=== PATIENT | female | born 1970 | race Two or more races ===

== ENCOUNTER 2020-06-18 15:03 | Emergency (ER) | payer MEDICAID ==
[~2020-06-18] VITALS: Ht 162.6 cm; Wt 72.6 kg
--- NOTE | 2020-06-18 15:22 | NUR ---
TO ER BED 4 AWAITING MD EDGAR,MONITORED,UNABLE TO GIVE URINE SPECIMEN AT THIS TIME,NAD
--- NOTE | 2020-06-18 15:23 | NUR ---
THE PATIENT BIBS FOR C/O ABDOMINAL PAIN AND BACK PAIN X 2 MONTHS. THE PATIENT RATES PAIN 10/10 AT THIS TIME. DENIES NAUSEA/VOMITING OR DIARRHEA. THE PATIENT IS IN ROOM AIR AND DENIES SOB. RESPIRATION REGULAR AND UNLABORED. THE PATIENT IS PROVIDED WITH A WARM BLANKET FOR COMFORT. WILL CONTINUE TO MONITOR.
[2020-06-18] MEDS ORDERED: IV NS 0.9% 1,000 ML BAG IV ONE (16:00)
[2020-06-18] MEDS ORDERED: ONDANSETRON HCL/PF 4 MG/2 ML VIAL IVP ONE (16:00)
[2020-06-18] MEDS ORDERED: MORPHINE SULFATE INJ 2 MG/ML DISP.SYRIN IV ONE (16:00)
[2020-06-18] MEDS ORDERED: ONDANSETRON HCL/PF 4 MG/2 ML VIAL ONE (16:18)
[2020-06-18] MEDS ORDERED: MORPHINE SULFATE INJ 4 MG/ML DISP.SYRIN ONE (16:18)
[2020-06-18 16:26] LABS: BASOPHILS # (AUTO) 0.1 /CMM (0.0-0.2); BASOPHILS % (AUTO) 1.6 % (0.0-2.0); EOSINOPHILS % (AUTO) 4.5 % (0.0-6.0); HEMATOCRIT 39 % (33-45); HEMOGLOBIN 12.8 g/dL (11.5-14.8); LYMPHOCYTES # (AUTO) 3.1 /CMM (0.8-4.8); LYMPHOCYTES % (AUTO) 39.8 % (20.0-44.0); MEAN CORPUSCULAR HGB CONC 33 g/dl (31.0-36.0); MEAN CORPUSCULAR VOLUME 87 fL (82-100); MONOCYTES # (AUTO) 0.3 /CMM (0.1-1.30); MONOCYTES % (AUTO) 4.4 % (2.0-12.0); NEUTROPHILS # (AUTO) 3.8 /CMM (1.8-8.9); NEUTROPHILS % (AUTO) 49.7 % (43.0-81.0); PLATELET COUNT (AUTO) 257 /CMM (150-450); RED BLOOD CELL COUNT(AUTO) 4.43 MIL/uL (4.0-5.2); WHITE BLOOD COUNT (AUTO) 7.7 K/uL (4.3-11.0)
[2020-06-18 16:33] LABS: ALBUMIN 3.5 g/dL (3.4-5.0); BILIRUBIN,DIRECT 0.1 mg/dL (0.0-0.2); BILIRUBIN,TOTAL 0.3 mg/dL (0.2-1.0); CALCIUM, SERUM 8.6 mg/dL (8.5-10.1); CREATININE 0.8 mg/dL (0.6-1.3); POTASSIUM 3.8 mmol/L (3.5-5.1); TOTAL PROTEIN, SERUM 7.1 g/dL (6.4-8.2)
[2020-06-18] MEDS ORDERED: INSULIN REGULAR, HUMAN 100 UNIT/ML 10 ML VIAL SQ ONE (17:00)
--- NOTE | 2020-06-18 17:06 | NUR ---
The patient alert and oriented x4. Denies pain at this time. The patient is in no apparent distress. Will continue to monitor.
[2020-06-18] MEDS ORDERED: OMEP40CA13 PO (17:13)
--- NOTE | 2020-06-18 17:22 | NUR ---
The patient has refused to given urine despite explaining risks and benefits. Dr. Davis is made aware.
--- NOTE | 2020-06-18 17:33 | NUR ---
Patient discharged to home in stable condition. Written and verbal after care instructions given. Patient verbalizes understanding of instruction. The patient left ER in stable condition.
[2020-06-18 17:35] VITALS: BP 131/72
== END 2020-06-18 17:34 | disposition home or self-care (01) ==
LOC: ER 15:07
DX: R10.13 Epigastric pain (principal); R11.0 Nausea; R19.7 Diarrhea, unspecified; E11.9 Type 2 diabetes mellitus without complications; Z79.899 Other long term (current) drug therapy
CPT/HCPCS: 36415; 74176; 80048; 80076; 82962; 83690; 85025; 96361; 96372; 96374; 96375; 99284; J1815; J2270; J2405; J7030 ×2

== ENCOUNTER 2022-06-30 21:25 | Emergency (ER) | payer MEDICAID, OTHER ==
[~2022-06-30] VITALS: Ht 157.5 cm; Wt 73.0 kg
[~2022-06-30 21:25] MED LIST: OMEP40CA21 PO
--- NOTE | 2022-06-30 21:55 | NUR ---
BIBSELF FROM HOME C/O L SIDED CP X3 DAYS. -N/V, CP IS 9/10. DESCRIBED PRESSURED. PATIENT IS AAOX4, ABLE TO MAKE NEEDS KNOWN. ROMANSH SPEAKING. PLACED COMFORTABLY IN BED. ATTACHED TO MONITOR. VITALS CHECKED.
--- NOTE | 2022-06-30 22:18 | NUR ---
EKG DONE AT BEDSIDE
--- NOTE | 2022-06-30 22:20 | NUR ---
IV ALBERT G20 INSERTED ON LEFT FA. BLOOD DRAWN AND SENT TO LAB
--- NOTE | 2022-06-30 22:20 | NUR ---
WALLPAPER SCRAPER AT BEDSIDE
[2022-06-30 22:45] LABS: BASOPHILS # (AUTO) 0.1 K/uL (0.0-0.2); BASOPHILS % (AUTO) 0.7 % (0.0-2.0); EOSINOPHILS % (AUTO) 3.2 % (0.0-6.0); HEMATOCRIT 38 % (33-45); HEMOGLOBIN 12.4 g/dL (11.5-14.8); LYMPHOCYTES # (AUTO) 3.4 K/uL (0.8-4.8); LYMPHOCYTES % (AUTO) 37.4 % (20.0-44.0); MEAN CORPUSCULAR HGB CONC 33 g/dl (31.0-36.0); MEAN CORPUSCULAR VOLUME 88 fL (82-100); MONOCYTES # (AUTO) 0.6 K/uL (0.1-1.30); MONOCYTES % (AUTO) 6.6 % (2.0-12.0); NEUTROPHILS # (AUTO) 4.7 K/uL (1.8-8.9); NEUTROPHILS % (AUTO) 52.1 % (43.0-81.0); PLATELET COUNT (AUTO) 306 K/uL (150-450); RED BLOOD CELL COUNT(AUTO) 4.33 MIL/uL (4.0-5.2)
[2022-06-30] MEDS ORDERED: ASPIRIN EC 325 MG TABLET.DR PO ONE (22:45)
[2022-06-30 22:55] LABS: CARBON DIOXIDE 27 mmol/L (21-32); CHLORIDE 106 mmol/L (98-107); CREATININE 0.7 mg/dL (0.6-1.3); GLUCOSE 141 mg/dL (74-106); POTASSIUM 4.1 mmol/L (3.5-5.1); SODIUM SERUM 141 mmol/L (136-145); UREA NITROGEN, BLOOD 17 mg/dL (7-18)
[2022-06-30] MEDS ORDERED: ASPIRIN 325 MG TABLET PO ONE (23:00)
[2022-06-30 23:30] VITALS: BP 133/71
--- NOTE | 2022-06-30 23:30 | NUR ---
IV ALBERT REMOVED
--- NOTE | 2022-06-30 23:30 | NUR ---
Patient discharged to home in stable condition. Written and verbal after care instructions given. Patient verbalizes understanding of instruction.
== END 2022-06-30 23:31 | disposition home or self-care (01) ==
LOC: ER 21:27
DX: R07.9 Chest pain, unspecified (principal)
CPT/HCPCS: 36415; 71045-TC; 80048-TC; 84484-TC; 85025-TC